=== PATIENT | female | born 1980 | race African-American/Black ===

== ENCOUNTER 2018-12-02 16:28 | Inpatient (IN) ==
[2018-12-02] MEDS ORDERED: AMMONIA INHALANT 1 EACH AMP INH ONE (16:30)
[2018-12-02] MEDS ORDERED: ONDANSETRON 4 MG/2 ML VIAL ONE (16:36)
[2018-12-02] MEDS ORDERED: ONDANSETRON 4 MG/2 ML VIAL IV STA (16:44)
[2018-12-02] MEDS ORDERED: hydrALAZINE 20 MG/1 ML VIAL IV STA ×2 (16:48→18:11)
[2018-12-02 16:59] LABS: Basophils % 0.6 % (0.0-0.8); Eosinophils # 0.1 10*3/uL (0.0-0.87); Eosinophils % 1.1 % (0.00-10.9); Hematocrit 41.2 VOL% (35.7-47.0); Hemoglobin 13.5 GM/DL (12.0-16.0); Immature Granulocytes % 0.3 %; Immature Granulocytes Absolute 0.02 #; Lymphocytes # 2.5 10*3/uL (1.4-4.0); Lymphocytes % 39.5 % (21.3-54.2); Mean Corpuscular HGB Conc 32.8 GM/DL (32-36); Mean Corpuscular Volume 99.5 FL (87-102); Mean Platelet Volume 10.9 FL (9.6-12.0); Monocytes % 7.3 % (1.7-12.7); Neutrophils % 51.2 % (38.7-73.9); Platelet Count 216 T/CUMM (130-400); Red Blood Count 4.14 MC/CUMM (3.8-5.5); Red Cell Distribution Width 11.9 % (9.3-17.3); White Blood Count 6.3 T/CUMM (4-12)
[2018-12-02 17:10] LABS: Alanine Aminotransferase 31 U/L (13-56); Alkaline Phosphatase 86 U/L (45-117); Aspartate Amino Transferase 18 U/L (0-37); Bilirubin,Total < 0.39 MG/DL (0.2-1.0); Blood Urea Nitrogen 11 MG/DL (7-18); Calcium 9.7 MG/DL (8.5-10.1); Estimated Glom Filtration Rate 86 ML/MIN; Glucose 92 MG/DL (74-106); Osmolality,Calculated 281.1 MOS/KG (273-304); Total Protein 8.2 G/DL (6.4-8.3)
[2018-12-02 17:12] LABS: Troponin I < 0.015 NG/ML (0.00-0.045)
[2018-12-02 17:16] LABS: ABG Base Excess 1.3 MMOL/L (-2.5-2.5); ABG HCO3 25.6 MMOL/L (20-26); ABG Oxygen Saturation 99.4 % (95-100); ABG PCO2 34.4 MM HG (35-48); ABG PH 7.461 (7.35-7.45); ABG TCO2 21.2 MMOL/L (23-27)
[2018-12-02 17:19] LABS: Salicylate 5.1 MG/DL (2.8-20)
[2018-12-02 17:22] LABS: Acetaminophen < 2.0 UG/ML (10-30)
[2018-12-02 18:11] LABS: Apearance,Urine Slightly Hazy (Clear); Bacteria,Urine Occasional /HPF (Few); Barbiturates Screen,Urine Negative (Negative); Benzodiazepines Screen,Urine Negative (Negative); Bilirubin,Urine Negative (Negative); Blood, Urine Negative (Negative); Cannabinoid Screen,Urine Positive (Negative); Glucose,Urine (UA) Negative (Negative); Ketones,Urine Negative (Negative); Mucus,Urine Occasional /LPF (Occasional); Nitrite,Urine Positive (Negative); Opiate Screen,Urine Negative (Negative); Phencyclidine Screen,Urine Negative (Negative); Protein,Urine Negative; RBC,Urine 4 /HPF (0-4); Squamous Epithelial Cell,Urine Occasional /HPF (0-10); Urine Color Yellow (Yellow); Urine Specific Gravity 1.017 (1.001-1.035); Urine Urobilinogen < 2.0 EU/DL (0.2-1.0); WBC,Urine 5 /HPF (0-6)
[2018-12-02] MEDS ORDERED: ONDANSETRON 4 MG/2 ML VIAL IV PRN (20:37)
[2018-12-02] MEDS ORDERED: NICOTINE 21 MG/24 HR PATCH TRANSDERM PRN (20:37)
[2018-12-02] MEDS ORDERED: POTASSIUM CHLORIDE 20 MEQ TABLET PO STA (20:43)
[2018-12-02] MEDS ORDERED: cloNIDine 0.1 MG TABLET PO PRN (20:46)
[2018-12-02 21:21] LABS: Troponin I < 0.015 NG/ML (0.00-0.045)
[2018-12-02] MEDS: cefTRIAXone 1,000 MG in SYRINGE 1 EACH IV SCH (22:41)
[2018-12-02] MEDS: ENOXAPARIN 40 MG/0.4 ML SYRINGE SUBCUT SCH (22:41)
[2018-12-02] MEDS: SODIUM CHLORIDE 0.45% 1,000 ML IV SCH (22:42)
[2018-12-02] MEDS: FLUTICASONE 50 MCG NASAL SPRAY 16 GM BOTTLE BOTH NARES SCH (22:44)
[2018-12-03] MEDS: cloNIDine 0.1 MG TABLET PO PRN ×2 (02:38→14:21)
[2018-12-03] MEDS: hydrALAZINE 20 MG/1 ML VIAL IV PRN (04:33)
[2018-12-03 05:10] LABS: Basophils % 0.6 % (0.0-0.8); Eosinophils # 0.1 10*3/uL (0.0-0.87); Eosinophils % 1.4 % (0.00-10.9); Hematocrit 40.2 VOL% (35.7-47.0); Hemoglobin 12.9 GM/DL (12.0-16.0); Immature Granulocytes % 0.4 %; Immature Granulocytes Absolute 0.02 #; Lymphocytes # 2.4 10*3/uL (1.4-4.0); Lymphocytes % 46.3 % (21.3-54.2); Mean Corpuscular HGB Conc 32.1 GM/DL (32-36); Mean Corpuscular Volume 99.5 FL (87-102); Mean Platelet Volume 11.9 FL (9.6-12.0); Monocytes % 8.1 % (1.7-12.7); Neutrophils % 43.2 % (38.7-73.9); Platelet Count 199 T/CUMM (130-400); Red Blood Count 4.04 MC/CUMM (3.8-5.5); White Blood Count 5.2 T/CUMM (4-12)
[2018-12-03 05:31] LABS: Albumin 3.4 G/DL (3.4-5.0); Bilirubin,Total 0.5 MG/DL (0.2-1.0); Calcium 8.9 MG/DL (8.5-10.1); Osmolality,Calculated 277.4 MOS/KG (273-304); Risk Ratio 3.25; Total Protein 7.3 G/DL (6.4-8.3)
[2018-12-03] MEDS: SODIUM CHLORIDE 0.45% 1,000 ML IV SCH ×2 (08:58→21:17)
[2018-12-03] MEDS ORDERED: hydroCHLOROthiazide 25 MG TABLET PO SCH (09:00)
[2018-12-03] MEDS ORDERED: amLODIPine 10 MG TABLET PO SCH (09:00)
[2018-12-03] MEDS ORDERED: POTASSIUM CHLORIDE 20 MEQ TABLET PO ONE (10:28)
[2018-12-03] MEDS: POTASSIUM CHLORIDE RIDER 10 MEQ in PREMIX 1 EACH IV SCH ×4 (10:59→16:09)
[2018-12-03] MEDS: LORATADINE 10 MG TABLET PO SCH (11:03)
[2018-12-03] MEDS: PANTOPRAZOLE 40 MG TABLET PO SCH (11:03)
[2018-12-03] MEDS: amLODIPine 10 MG TABLET PO SCH (11:03)
[2018-12-03] MEDS: FLUTICASONE 50 MCG NASAL SPRAY 16 GM BOTTLE BOTH NARES SCH ×2 (12:44→22:53)
[2018-12-03] MEDS: ACETAMINOPHEN 325 MG TABLET PO PRN (12:44)
[2018-12-03] MEDS: cefTRIAXone 1,000 MG in SYRINGE 1 EACH IV SCH (21:17)
[2018-12-03] MEDS: ENOXAPARIN 40 MG/0.4 ML SYRINGE SUBCUT SCH (21:17)
[2018-12-04] MEDS: hydrALAZINE 20 MG/1 ML VIAL IV PRN (03:03)
[2018-12-04] MEDS: SODIUM CHLORIDE 0.45% 1,000 ML IV SCH (06:38)
[2018-12-04] MEDS: LORATADINE 10 MG TABLET PO SCH (08:16)
[2018-12-04] MEDS: PANTOPRAZOLE 40 MG TABLET PO SCH (08:16)
[2018-12-04] MEDS: ACETAMINOPHEN 325 MG TABLET PO PRN (08:16)
[2018-12-04] MEDS: amLODIPine 10 MG TABLET PO SCH (08:16)
[2018-12-04] MEDS: FLUTICASONE 50 MCG NASAL SPRAY 16 GM BOTTLE BOTH NARES SCH (08:17)
[2018-12-04 09:17] VITALS: BP 143/91
== END 2018-12-04 10:54 | disposition home or self-care (01) | DRG 918 ==
LOC: EDUNIT# → EDSEX → EDBD → N.ED 16:28 → SUATTDRO 20:37 → N.EDINP 20:37 → N.CC 21:10 → N.5E 12-03 14:45
PROVIDERS: ADMIT Family Medicine